=== PATIENT | female | born 1980 | race Caucasian/White ===

== ENCOUNTER 2021-05-20 22:18 | Emergency (ER) | payer OTHER ==
[2021-05-20] MEDS ORDERED: Sodium Chloride 0.9% 10 ML Syringe FLUSH PRN (23:06)
--- NOTE | 2021-05-20 23:24 | EDM.PDOC ---
ED HPI GENERAL MEDICAL PROBLEM - General Chief Complaint: General Stated Complaint: Covid sx Time Seen by Provider: 05/20/21 23:08 Source of Information: Reports: Patient History Limitations: Reports: No Limitations - History of Present Illness INITIAL COMMENTS - FREE TEXT/NARRATIVE: Patient presents with fever, body aches, cough that started 4 days ago. Two days ago she tested negative for Covid. Today with the cough she was feeling some shortness of breath. Temp at home was up to 101 at the highest. Headache Pain Score (Numeric/FACES): 7 Generalized Pain Score (Numeric/FACES): 4 ED ROS GENERAL - Review of Systems Review Of Systems: See Below Constitutional: Reports: Fever, Malaise HEENT: Reports: Ear Pain, Throat Pain Respiratory: Reports: Shortness of Breath, Cough Cardiovascular: Denies: Chest Pain, Lightheadedness, Syncope GI/Abdominal: Denies: Abdominal Pain, Diarrhea, Vomiting : Denies: Dysuria, Flank Pain Musculoskeletal: Reports: Other (general aches) Skin: Reports: No Symptoms Neurological: Denies: Confusion, Seizure, Syncope Psychiatric: Denies: Agitation, Confusion ED EXAM, GENERAL - Physical Exam Exam: See Below Exam Limited By: No Limitations General Appearance: Alert, WD/WN, No Apparent Distress Eye Exam: Bilateral Eye: EOMI, Normal Inspection, PERRL Ears: Normal External Exam, Hearing Grossly Normal Nose: Normal Inspection, No Blood Throat/Mouth: Normal Inspection, Normal Lips, Normal Voice, No Airway Compromise Head: Atraumatic, Normocephalic Neck: Normal Inspection, Full Range of Motion Respiratory/Chest: No Respiratory Distress, Lungs Clear, No Accessory Muscle Use, Wheezing (twice I heard a transient, mild wheeze) Cardiovascular: Normal Peripheral Pulses, Regular Rate, Rhythm, No Murmur Peripheral Pulses: 2+: Carotid (L), Carotid (R), Radial (L), Radial (R), Posterior Tibial (L), Posterior Tibial (R) GI/Abdominal: Normal Bowel Sounds, Soft, Non-Tender, No Organomegaly, No Distention, No Abnormal Bruit Back Exam: Normal Inspection, Full Range of Motion. No: CVA Tenderness (L), CVA Tenderness (R) Extremities: Normal Inspection, Normal Range of Motion Neurological: Alert, Oriented, Normal Cognition, No Motor/Sensory Deficits Psychiatric: Normal Affect, Normal Mood Skin Exam: Warm, Dry, Intact, Normal Color, No Rash Course - Vital Signs Last Recorded V/S: Last Vital Signs Temp 100.0 F 05/20/21 22:26 Pulse 73 05/20/21 22:26 Resp 17 05/20/21 22:26 BP 116/52 L 05/20/21 22:26 Pulse Ox 95 05/20/21 22:26 - Orders/Labs/Meds Orders: Active Orders 24 hr Category Date Time Status Peripheral IV Care [RC] . DIRECTED Care 05/20/21 23:06 Active Chest 2V [CR] Stat Exams 05/20/21 23:05 Ordered Sodium Chloride 0.9% [Saline Flush] Med 05/20/21 23:06 Active 10 ml FLUSH Q8HR PRN Peripheral IV Insertion Adult [OM.PC] Routine Oth 05/20/21 23:06 Ordered Medication Orders Sodium Chloride (Sodium Chloride 0.9% 10 Ml Syringe) 10 ml FLUSH Q8HR PRN PRN Reason: keep vein open Labs: Laboratory Tests 05/20/21 05/20/21 05/20/21 Range/Units 23:08 23:13 23:13 WBC 4.83 L (5.00-10.00) 10^3/uL RBC 4.93 (3.80-5.50) 10^6/uL Hgb 14.2 (12.0-16.0) g/dL Hct 42.8 (37.0-47.0) % MCV 86.8 (82.0-92.0) fL MCH 28.8 (27.0-31.0) pg MCHC 33.2 (32.0-36.0) g/dL RDW 13.2 (11.5-14.5) % Plt Count 177 (150-400) 10^3/uL MPV 9.9 (7.4-10.4) fL Immature Gran % (Auto) 0.0 (0.0-5.0) % Neut % (Auto) 40.8 L (50.0-70.0) % Lymph % (Auto) 45.8 H (20.0-40.0) % Shannon % (Auto) 8.9 H (2.0-8.0) % Eos % (Auto) 3.9 H (1.0-3.0) % Baso % (Auto) 0.6 (0.0-1.0) % Neut # (Auto) 1.97 L (2.50-7.00) 10^3/uL Lymph # (Auto) 2.21 (1.00-4.00) 10^3/uL Shannon # (Auto) 0.43 (0.10-0.80) 10^3/uL Eos # (Auto) 0.19 (0.10-0.30) 10^3/uL Baso # (Auto) 0.03 (0.00-0.10) 10^3/uL Immature Gran # (Auto) 0.00 (0.00-0.50) 10^3/uL Sodium 140 (136-145) mmol/L Potassium 3.3 L (3.5-5.1) mmol/L Chloride 103 (98-107) mmol/L Carbon Dioxide 24.9 (21.0-32.0) mmol/L Anion Gap 15.4 H (5-15) mmol/L BUN 4 L (7-18) mg/dL Creatinine 0.63 (0.51-1.17) mg/dL Est Cr Clr Drug Dosing TNP Estimated GFR (MDRD) > 60 mL/min Glucose 87 (70-140) mg/dL Calcium 8.1 L (8.7-10.3) mg/dL Total Bilirubin 0.2 (0.2-1.0) mg/dL AST 26 (15-37) U/L ALT 48 (14-63) U/L Alkaline Phosphatase 91 (46-116) U/L Total Protein 6.4 (6.4-8.2) g/dL Albumin 3.52 (3.40-5.00) g/dL Influenza Type A RNA Positive H (NEGATIVE) RSV RNA (INAAT) Negative (NEGATIVE) Influenza Type B RNA Negative (NEGATIVE) SARS-CoV-2 RNA (DANIEL) Negative (NEGATIVE) Meds: Medications Generic Name Dose Route Start Last Admin Trade Name Freq PRN Reason Stop Dose Admin Sodium Chloride 10 ml 05/20/21 23:06 Sodium Chloride 0.9% 10 Ml Syringe FLUSH Q8HR PRN keep vein open - Re-Assessments/Exams Free Text/Narrative Re-Assessment/Exam: 05/20/21 23:58 CBC and CMP are okay. CXR shows mild peribronchial thickening of upper lobe bronchi that may indicate reactive airway disease. No infiltrate, pneumothorax, or effusion. No fracture. 05/21/21 00:28 Influenza A positive. Discussed findings and recommendations with patient. She is discharged to home in stable condition. Departure - Departure Time of Disposition: 00:27 Disposition: Home, Self-Care 01 Condition: Good Clinical Impression: Influenza A - Discharge Information Instructions: Influenza, Adult, [id number] Referrals: Yesenia Schultz PA-C [Primary Care Provider] - Forms: ED Department Discharge Additional Instructions: Drink at least 8 cups of water daily. Get lots of extra rest the next few days. Follow up with your PCP if not improving in 5-7 days. If worsening, recheck in clinic or ER as needed. Sepsis Event Note (ED) - Focused Exam Vital Signs: Vital Signs Temp Pulse Resp BP Pulse Ox 05/20/21 22:26 100.0 F 73 17 116/52 L 95 - My Orders Last 24 Hours: My Active Orders 05/20/21 23:05 Chest 2V [CR] Stat 05/20/21 23:06 Peripheral IV Care [RC] . DIRECTED Sodium Chloride 0.9% [Saline Flush] 10 ml FLUSH Q8HR PRN Peripheral IV Insertion Adult [OM.PC] Routine - Assessment/Plan Last 24 Hours: My Active Orders 05/20/21 23:05 Chest 2V [CR] Stat 05/20/21 23:06 Peripheral IV Care [RC] . DIRECTED Sodium Chloride 0.9% [Saline Flush] 10 ml FLUSH Q8HR PRN Peripheral IV Insertion Adult [OM.PC] Routine
[2021-05-20 23:53] LABS: ANION GAP 15.4 mmol/L (5-15); CHLORIDE,CL 103 mmol/L (98-107); SODIUM,NA 140 mmol/L (136-145)
[2021-05-21 00:12] LABS: CORONAVIRUS COVID-19 NAA NEGATIVE (NEGATIVE)
[2021-05-21 00:13] LABS: RESPIRATORY SYNCYTIAL VIR NAA NEGATIVE (NEGATIVE)
--- NOTE | 2021-05-21 08:31 | CR ---
[id number] RAD/RAD Chest PA And Lateral EXAM: RAD Chest PA And Lateral INDICATION: COVID SYMPTOMS COMPARISON: None. DISCUSSION/IMPRESSION: Cardiomediastinal silhouette is normal in size and contour. Lungs are clear. No pleural effusion or pneumothorax. Ashok Collado MD 05/21/21 [id number] Thank you for allowing us to participate in the care of your patient.
== END 2021-05-21 00:49 | disposition home or self-care (01) ==
LOC: KA.ED 22:18
DX: J10.1 Influenza due to other identified influenza virus with other respiratory manifestations (principal); Z20.822 Contact with and (suspected) exposure to COVID-19
CPT/HCPCS: 0241U; 36415; 71046; 80053; 85025; 99283; 99283-25